=== PATIENT | female | born 1990 | race Caucasian/White ===

== ENCOUNTER 2023-12-22 07:57 | Outpatient (CLI) | payer BC | END 2023-12-22 07:58 | disposition home or self-care (01) | LOC: CSHCT 07:57 | PROVIDERS: ATTEND Family Medicine | DX: R51.9 Headache, unspecified (principal); J32.8 Other chronic sinusitis; E04.2 Nontoxic multinodular goiter | CPT/HCPCS: 70486 ==

== ENCOUNTER 2023-12-29 07:52 | Outpatient (CLI) | payer BC | END 2023-12-29 07:53 | disposition home or self-care (01) | LOC: CSHULT 07:52 | PROVIDERS: ATTEND Family Medicine | DX: E04.1 Nontoxic single thyroid nodule (principal) | CPT/HCPCS: 76536 ==

== ENCOUNTER 2025-02-12 23:36 | Emergency (ER) | payer BC ==
[2025-02-13 00:13] LABS: Glucose, Urine (Dipstick) Normal (Negative); Leukocyte Negative (Negative); Protein, Urine (Dipstick) Negative (Neg-Trace); Specific Gravity, Urine 1.010 (1.005-1.030)
[2025-02-13 00:14] LABS: Pregnancy Test - Urine (BHCG) Negative (Negative); Pregu Control Background? CLEAR/WHITE (CLR/WHITE); Pregu Control Bar Appear? YES (CONTROL BAR)
[2025-02-13 00:21] LABS: Bacteria/HPF None Seen HPF (None Seen); CAUTI Indications for Culture Alt mental st,lethar; RBC/HPF None Seen HPF (0-3); WBC/HPF None Seen HPF (0-3)
[2025-02-13 00:22] LABS: Urine Culture Reflex No No
[2025-02-13 00:23] LABS: Cocaine Metabolite Screen Negative (Negative); THC/Cannabinoid Screen Negative (Negative); Tricyclic Screen Negative (Negative)
== END 2025-02-13 00:15 | disposition home or self-care (01) ==
LOC: CSHERS 23:36
DX: F43.22 Adjustment disorder with anxiety (principal)
CPT/HCPCS: 80306; 81001; 81025; 99285